=== PATIENT | female | born 1975 | race Caucasian/White ===

== ENCOUNTER 2017-07-07 22:12 | Emergency (ER) | payer MEDICAID, OTHER ==
[2017-07-07] MEDS: METHYLPREDNISOLONE 125 MG INJ IV (22:44)
[2017-07-07] MEDS: DIPHENHYDRAMINE 50 MG INJ IV (22:44)
[2017-07-07] MEDS: FAMOTIDINE 20 MG INJ IV (22:44)
== END 2017-07-08 01:30 | disposition home or self-care (01) ==
LOC: E/R 07-08 01:30
DX: R60.0 Localized edema (principal); R06.02 Shortness of breath; Z87.891 Personal history of nicotine dependence; Z79.82 Long term (current) use of aspirin
CPT/HCPCS: 96374; 96375; 99284-25

== ENCOUNTER 2018-05-20 19:26 | Emergency (ER) | payer MEDICAID ==
[2018-05-20] MEDS: DEXAMETHASONE 10 MG/ML 1 ML INJ IM (21:33)
[2018-05-20] MEDS: KETOROLAC 60 MG INJ IM (21:33)
== END 2018-05-20 21:40 | disposition home or self-care (01) ==
LOC: FTE 19:26
DX: J04.0 Acute laryngitis (principal); Z79.82 Long term (current) use of aspirin
CPT/HCPCS: 81025; 96372; 99284-25